=== PATIENT | female | born 1980 | race American Indian/Alaskan Native ===

== ENCOUNTER 2018-05-31 08:47 | Outpatient (CLI) | payer OTHER | END 2018-05-31 09:44 | disposition home or self-care (01) | LOC: NST 08:47 | DX: Z34.83 Encounter for supervision of other normal pregnancy, third trimester (principal) ==

== ENCOUNTER 2018-06-10 09:34 | Outpatient (CLI) | payer OTHER | END 2018-06-10 11:14 | disposition home or self-care (01) | LOC: NST 09:34 | DX: Z34.83 Encounter for supervision of other normal pregnancy, third trimester (principal) ==

== ENCOUNTER 2018-06-15 10:43 | Outpatient (CLI) | payer OTHER | END 2018-06-15 11:39 | disposition home or self-care (01) | LOC: NST 10:43 | DX: Z34.83 Encounter for supervision of other normal pregnancy, third trimester (principal) ==

== ENCOUNTER 2018-06-21 12:15 | Inpatient (IN) | payer OTHER ==
[~2018-06-21] VITALS: Ht 160 cm; Wt 69.9 kg
[2018-06-28] MEDS ORDERED: PRENATAL TABLE1 EACH PO (09:46)
== END 2018-07-02 14:10 | DRG 807 ==
LOC: OB/GYN 12:15 → LDR 06-28 06:28 → SURG-SUITE 06-28 17:07
PROVIDERS: ADMIT Obstetrics & Gynecology Maternal & Fetal Medicine
PROC: 10E0XZZ Delivery of Products of Conception, External Approach (ICD-10-PCS; principal; 2018-06-28)
PROC: 4A1HXCZ Monitoring of Products of Conception, Cardiac Rate, External Approach (ICD-10-PCS; 2018-06-28)
PROC: 3E033VJ Introduction of Other Hormone into Peripheral Vein, Percutaneous Approach (ICD-10-PCS; 2018-06-28)
PROC: 0HQ9XZZ Repair Perineum Skin, External Approach (ICD-10-PCS; 2018-06-28)
PROC: 4A033R1 Measurement of Arterial Saturation, Peripheral, Percutaneous Approach (ICD-10-PCS; 2018-06-28)
DX: O70.0 First degree perineal laceration during delivery (principal); Z37.0 Single live birth; Z3A.38 38 weeks gestation of pregnancy; Z22.330 Carrier of Group B streptococcus

== ENCOUNTER 2018-06-22 12:57 | Outpatient (CLI) | payer OTHER | END 2018-06-22 13:46 | disposition home or self-care (01) | LOC: NST 12:57 | DX: Z34.83 Encounter for supervision of other normal pregnancy, third trimester (principal) ==

== ENCOUNTER 2020-10-01 09:28 | Outpatient (CLI) | payer OTHER ==
[~2020-10-01 09:28] MED LIST: PRENATAL TABLE1 EACH PO
== END 2020-10-01 09:43 | disposition home or self-care (01) ==
LOC: MAMO-SONO 09:28
PROVIDERS: ATTEND Obstetrics & Gynecology Maternal & Fetal Medicine
DX: Z12.31 Encounter for screening mammogram for malignant neoplasm of breast (principal)

== ENCOUNTER 2021-08-27 09:44 | Outpatient (CLI) | payer OTHER | END 2021-08-27 09:58 | disposition home or self-care (01) | LOC: RAD 09:44 | PROVIDERS: ATTEND Physical Medicine & Rehabilitation | DX: M54.50 Low back pain, unspecified (principal); M54.6 Pain in thoracic spine; M17.11 Unilateral primary osteoarthritis, right knee ==

== ENCOUNTER 2022-04-28 09:31 | Outpatient (CLI) | payer OTHER | END 2022-04-28 09:43 | disposition home or self-care (01) | LOC: RAD 09:31 | PROVIDERS: ATTEND Plastic Surgery Surgery of the Hand | DX: Z01.818 Encounter for other preprocedural examination (principal) ==

== ENCOUNTER → 2022-07-06 | Outpatient (CLI) | payer OTHER | END | disposition home or self-care (01) | LOC: RAD 08:05 | PROVIDERS: ATTEND Family Medicine | DX: R05.3 Chronic cough (principal) ==

== ENCOUNTER 2023-02-15 10:28 | Outpatient (CLI) | payer OTHER | END 2023-02-15 15:19 | disposition home or self-care (01) | LOC: RAD 10:28 | PROVIDERS: ATTEND Family Medicine | DX: R05.3 Chronic cough (principal) ==

== ENCOUNTER 2023-05-17 09:16 | Outpatient (CLI) | payer OTHER | END 2023-05-17 09:25 | disposition home or self-care (01) | LOC: RAD 09:16 | PROVIDERS: ATTEND Internal Medicine Pulmonary Disease | DX: J31.0 Chronic rhinitis (principal) ==